=== PATIENT | male | born 1965 ===

== ENCOUNTER 2017-06-13 10:27 | Observation (INO) | payer BC ==
[2017-06-13] MEDS ORDERED: Albuterol-Ipratrop 3 mg / 0.5 (3 ml) UD ONE ×2 (10:52→14:35)
[2017-06-13] MEDS ORDERED: Magnesium Sulfate 2 gm/50 ml 2 GM/50 ML BAG ONE (10:53)
[2017-06-13] MEDS ORDERED: Magnesium Sulfate 2 gm/50 ml 2 GM/50 ML BAG IVPB ONE (10:56)
[2017-06-13] MEDS ORDERED: Albuterol-Ipratrop 3 mg / 0.5 (3 ml) UD INH STA ×3 (10:56→14:38)
--- NOTE | 2017-06-13 11:09 | ED PDOC ---
HPI: SOB/CHF/COPD Time Seen by Provider: 06/13/17 10:41 Chief Complaint (Nursing): Shortness Of Breath Chief Complaint (Provider): Shortness of Breath, Cough History Per: Patient History/Exam Limitations: no limitations Onset/Duration Of Symptoms: Days (2 weeks) Current Symptoms Are (Timing): Still Present Current Respiratory Medications: See Home Med List Associated Symptoms: denies: Sweating, Chest Pain, Bloody Cough, Heart Racing, Leg/Calf Pain, Ankle/Leg Swelling, Dizziness, Anxiety Recently: Seen In ED Additional History Per: Patient Additional Complaint(s): Patient is a 52 year old male, with Past medical history of asthma since 2003, presents to Emergency Department for evaluation of cough, shortness of breath, body aches, and generalized weakness for the past 2 weeks. Patient was seen at [facility] 10 days ago for similar symptoms and was prescribed Prednisone, and Azithromycin which patient completed without improvement of symptoms. Patient denies chest pain, orthopnea, hemoptysis, or fever. Past Medical History Reviewed: Historical Data, Nursing Documentation, Vital Signs Vital Signs: Last Vital Signs Temp 98.1 F 06/14/17 15:46 Pulse 102 H 06/14/17 15:46 Resp 20 06/14/17 15:46 BP 149/84 06/14/17 15:46 Pulse Ox 95 06/14/17 15:46 - Medical History PMH: Asthma, Pneumonia (in 2003) - Surgical History Surgical History: No Surg Hx - Family History Family History: States: Unknown Family Hx - Social History Current smoker - smoking cessation education provided: No - Home Medications Home Medications: Ambulatory Orders Medication Instructions Recorded Ascorbic Acid [Vitamin C 500 mg 1 tab PO DAILY 06/13/17 Tab] Multivitamin [Multi-Vitamin Daily] 1 tab PO DAILY 06/13/17 Albuterol HFA [Ventolin HFA 90 2 puff IH Q4H PRN 30 Days inhaler 06/14/17 mcg/actuation (8 g)] Albuterol/Ipratropium [Duoneb 3 3 ml INH RQID neb 06/14/17 mg/0.5 mg (3 ml) UD] Azithromycin 250 mg PO DAILY 5 Days #6 tablet 06/14/17 Fluticasone/Salmeterol 250/50 1 puff IH Q12 puff 06/14/17 [Advair Diskus 250/50] - Allergies Allergies/Adverse Reactions: Allergies Allergy/AdvReac Type Severity Reaction Status Date / Time No Known Allergies Allergy Verified 06/13/17 10:42 Review of Systems Constitutional: Positive for: Weakness (body aches). Negative for: Fever, Chills Cardiovascular: Negative for: Chest Pain, Palpitations, Orthopnea, Edema, Light Headedness Respiratory: Positive for: Cough, Shortness of Breath, Wheezing. Negative for: Hemoptysis, Sputum Physical Exam - Reviewed Nursing Documentation Reviewed: Yes Vital Signs Reviewed: Yes - Physical Exam Appears: Positive for: Non-toxic, No Acute Distress Head Exam: Positive for: ATRAUMATIC, NORMOCEPHALIC Skin: Positive for: Normal Color, Warm, Dry Eye Exam: Positive for: EOMI, Normal appearance, PERRL Neck: Positive for: Normal, Painless ROM, Supple Cardiovascular/Chest: Positive for: Regular Rate, Rhythm. Negative for: Murmur Respiratory: Positive for: Wheezing (trace wheezing bilaterally). Negative for : Respiratory Distress Gastrointestinal/Abdominal: Positive for: Normal Exam, Soft. Negative for: Tenderness Back: Positive for: Normal Inspection. Negative for: Vertebral Tenderness Extremity: Positive for: Normal ROM. Negative for: Pedal Edema, Deformity Neurologic/Psych: Positive for: Alert, Oriented. Negative for: Motor/Sensory Deficits - Laboratory Results Result Diagrams: 06/14/17 08:10 06/14/17 08:10 - ECG O2 Sat by Pulse Oximetry: 95 (on RA) Pulse Ox Interpretation: Normal Medical Decision Making Medical Decision Making: Plan: EKG, Chest x-ray CMP, CBC, Troponin, B-type Natriuretic Peptide Albuterol treatment Solu-Medrol Magnesium Sulfate Reassess labs clinically unremarkable CXR reviewed no acute infiltrate Clinically appears as +yellow productive sputum, will treat for clinical PNA Time: 1430 --Upon provider reevaluation, patient remains hypoxic with SpO2: 89% at room air. Patient was short of breath while walking to bathroom. Given failure at outpatient facility with oral Prednisone and antibiotics, patient will be placed on tele OBS to Dr. Villagran for stabilization. Levaquin initiated. Admit Obs Dr Villagran weapons electrical engineering officer medicine, PMD in [place]. Disposition - Clinical Impression Clinical Impression: Asthma exacerbation - Patient ED Disposition Is Patient to be Admitted: Yes Counseled Patient/Family Regarding: Studies Performed - Disposition Disposition Time: 14:30 Condition: STABLE - Pt Status Changed To: Hospital Disposition Of: Observation - POA Present On Arrival: None - PA / DENTAL THERAPIST / Resident Statement /DO has reviewed & agrees with the documentation as recorded. (Vernon Nicole All medical record entries made by the Scribe were at my direction and personally dictated by me. I have reviewed the chart and agree that the record accurately reflects my personal performance of the history, physical exam, medical decision making, and the department course for this patient. I have also personally directed, reviewed, and agree with the discharge instructions and disposition.)
[2017-06-13 11:24] LABS: BASO # 0.1 K/uL (0.0-0.2); BASO % 0.9 % (0.0-2.0); EOS # 1.1 K/uL (0.0-0.7); EOS % 11.2 % (0.0-4.0); HEMATOCRIT 45.6 % (35.0-51.0); LYMPH # 3.1 K/uL (1.0-4.3); LYMPH % 31.6 % (20.0-40.0); MEAN CELL VOLUME 88.8 fl (80.0-94.0); MEAN CORPUSCULAR HEMOGLOBIN 29.7 pg (27.0-31.0); MEAN CORPUSCULAR HGB CONC 33.4 g/dL (33.0-37.0); MEAN PLATELET VOLUME 7.5 fl (7.2-11.7); MONO # 0.9 K/uL (0.0-0.8); MONO % 8.9 % (0.0-10.0); NEUT # 4.7 K/uL (1.8-7.0); NEUT % 47.4 % (50.0-75.0); NRBC % 0.1 % (0.0-0.0); RED CELL DISTRIBUTION WIDTH 13.5 % (11.5-14.5); WHITE BLOOD COUNT 9.9 K/uL (4.8-10.8)
[2017-06-13 11:41] LABS: ALB/GLOB RATIO 1.4 (1.0-2.1); ALKALINE PHOSPHATASE 57 U/L (38-126); ALT/SGPT 57 U/L (21-72); AST/SGOT 31 U/L (17-59); BLOOD UREA NITROGEN 22 mg/dl (9-20); CALCIUM 9.2 mg/dL (8.4-10.2); CARBON DIOXIDE 29 mmol/L (22-30); CHLORIDE 105 mmol/L (98-107); GFR AFRICAN-AMERICAN > 60; GLUCOSE,RANDOM 115 mg/dL (75-110); POTASSIUM 3.6 MMOL/L (3.6-5.0); SODIUM 143 mmol/l (132-148); TOTAL PROTEIN 6.8 G/DL (6.3-8.2)
--- NOTE | 2017-06-13 11:52 | RAD ---
HISTORY: COMPARISON: No prior. TECHNIQUE: Chest PA and lateral FINDINGS: LINES AND TUBES: None. LUNG AND PLEURA: The lungs are hyperinflated and there is peribronchial thickening with chronic changes in both lungs. There is no lobar pneumonia. HEART AND MEDIASTINUM: The heart is not enlarged. The hilar and mediastinal contours are within normal limits. SKELETAL STRUCTURES: The bony structures are within normal limits for the patient's age. VISUALIZED UPPER ABDOMEN: Normal. OTHER FINDINGS: None. IMPRESSION: No active pulmonary disease. COPD.
[2017-06-13] MEDS ORDERED: levoFLOXacin 750 mg in D5W 150 ML BAG IVPB STA (14:37)
[2017-06-13] MEDS ORDERED: Albuterol-Ipratrop 3 mg / 0.5 (3 ml) UD INH PRN (16:04)
[2017-06-13] MEDS ORDERED: levoFLOXacin 750 mg in D5W 750 MG/150 ML BAG IVPB ONE (16:10)
--- NOTE | 2017-06-13 16:12 | CP.PCM.HP ---
History of Present Illness - History of Present Illness History of Present Illness: CC: Dyspnea and Cough History of Present Illness: A 52 year old male, with Past medical history of asthma since 2003, presents to Emergency Department for evaluation of cough, shortness of breath, body aches, and generalized weakness for the past 2 weeks. Patient was seen at [facility]] 10 days ago for similar symptoms and was prescribed Prednisone, and Azithromycin which patient completed without improvement of symptoms. Patient denies chest pain, orthopnea, hemoptysis, or fever. He smoked until 1996 from the age of 14, and does not know if he has Asthma vs COPD. Past Patient History - Past Social History Smoking Status: Never Smoked - PULMONARY Hx Asthma: Yes Hx Pneumonia: Yes (in 2003) - PSYCHIATRIC Hx Substance Use: No Meds Allergies/Adverse Reactions: Allergies Allergy/AdvReac Type Severity Reaction Status Date / Time No Known Allergies Allergy Verified 06/13/17 10:42 Results - Vital Signs Recent Vital Signs: Last Vital Signs Temp 97.8 F 06/13/17 15:28 Pulse 94 H 06/13/17 15:28 Resp 16 06/13/17 15:28 BP 136/70 06/13/17 15:28 Pulse Ox 92 L 06/13/17 15:28 - Labs Result Diagrams: 06/13/17 11:15 06/13/17 11:15 Labs: Laboratory Results - last 24 hr 06/13/17 06/13/17 11:15 11:15 WBC 9.9 RBC 5.14 Hgb 15.2 Hct 45.6 MCV 88.8 MCH 29.7 MCHC 33.4 RDW 13.5 Plt Count 203 MPV 7.5 Neut % (Auto) 47.4 L Lymph % (Auto) 31.6 [place] % (Auto) 8.9 Eos % (Auto) 11.2 H Baso % (Auto) 0.9 Neut # 4.7 Lymph # 3.1 [place] # 0.9 H Eos # 1.1 H Baso # 0.1 Sodium 143 Potassium 3.6 Chloride 105 Carbon Dioxide 29 Anion Gap 13 BUN 22 H Creatinine 0.8 Est GFR ( Amer) > 60 Est GFR (Non-Af Amer) > 60 Random Glucose 115 H Calcium 9.2 Total Bilirubin 1.0 AST 31 ALT 57 Alkaline Phosphatase 57 Troponin I < 0.0120 NT-Pro-B Natriuret Pep 58.3 Total Protein 6.8 Albumin 4.0 Globulin 2.8 Albumin/Globulin Ratio 1.4 Assessment & Plan (1) Asthma with COPD with exacerbation Status: Acute
[2017-06-13] MEDS ORDERED: methylPREDNISolone 40 MG in Sodium Chloride 0.9% 50 ML IV SCH (17:00)
[2017-06-13] MEDS: MethylPREDNISolone 40 mg Vial IVP SCH (18:51)
[2017-06-14] MEDS: MethylPREDNISolone 40 mg Vial IVP SCH ×3 (01:13→16:05)
--- NOTE | 2017-06-14 07:48 | CARD ---
APPROVED REPORT EKG Measurement Heart [id number] <Conclusion> Sinus tachycardia with occasional premature Atrial complexes Otherwise normal ECG
[2017-06-14 08:23] LABS: BASO % 0.1 % (0.0-2.0); EOS % 0.1 % (0.0-4.0); LYMPH # 1.1 K/uL (1.0-4.3); LYMPH % 10.6 % (20.0-40.0); MEAN CELL VOLUME 88.1 fl (80.0-94.0); MEAN CORPUSCULAR HEMOGLOBIN 29.2 pg (27.0-31.0); MEAN CORPUSCULAR HGB CONC 33.1 g/dL (33.0-37.0); MEAN PLATELET VOLUME 7.9 fl (7.2-11.7); MONO # 0.2 K/uL (0.0-0.8); MONO % 1.9 % (0.0-10.0); NEUT # 9.2 K/uL (1.8-7.0); NEUT % 87.3 % (50.0-75.0); RED CELL DISTRIBUTION WIDTH 13.2 % (11.5-14.5); WHITE BLOOD COUNT 10.5 K/uL (4.8-10.8)
[2017-06-14 08:30] LABS: BLOOD UREA NITROGEN 20 mg/dl (9-20); CALCIUM 9.2 mg/dL (8.4-10.2); CARBON DIOXIDE 28 mmol/L (22-30); CHLORIDE 102 mmol/L (98-107); GFR AFRICAN-AMERICAN > 60; GLUCOSE,RANDOM 147 mg/dL (75-110); POTASSIUM 4.4 MMOL/L (3.6-5.0); SODIUM 142 mmol/l (132-148)
[2017-06-14] MEDS: levoFLOXacin 500 mg in D5W 500 MG/100 ML BAG IVPB SCH (12:04)
[2017-06-14] MEDS: Pantoprazole 40 mg EC Tab PO SCH (12:07)
[2017-06-14] MEDS: Enoxaparin 40 mg Syringe SC SCH (12:07)
[2017-06-14] MEDS: Fluticasone-Salmeterol 250-50mcg Diskus IH SCH ×2 (12:08→23:13)
[2017-06-14] MEDS: Albuterol-Ipratrop 3 mg / 0.5 (3 ml) UD INH SCH ×4 (12:14→19:28)
[2017-06-14] MEDS ORDERED: Albuterol 0.083% Inhal Sol (2.5 mg/3 mL) UD ONE (16:33)
--- NOTE | 2017-06-14 16:58 | CP.PCM.DIS ---
Provider - Provider Date of Admission: 06/14/17 14:43 Attending physician: Khris Villagran MD Time Spent in preparation of Discharge (in minutes): 35 Diagnosis - Discharge Diagnosis (1) Asthma with COPD with exacerbation Status: Acute Hospital Course - Lab Results Lab Results: Micro Results 06/13/17 15:30 Blood-Venous Blood Culture - Preliminary NO GROWTH AFTER 24 HOURS 06/13/17 15:45 Blood-Venous Blood Culture - Preliminary NO GROWTH AFTER 24 HOURS Most Recent Lab Values WBC 10.5 K/uL (4.8-10.8) 06/14/17 08:10 RBC 5.45 Mil/uL (4.40-5.90) 06/14/17 08:10 Hgb 15.9 g/dL (12.0-18.0) 06/14/17 08:10 Hct 48.0 % (35.0-51.0) 06/14/17 08:10 MCV 88.1 fl (80.0-94.0) 06/14/17 08:10 MCH 29.2 pg (27.0-31.0) 06/14/17 08:10 MCHC 33.1 g/dL (33.0-37.0) 06/14/17 08:10 RDW 13.2 % (11.5-14.5) 06/14/17 08:10 Plt Count 229 K/uL (130-400) 06/14/17 08:10 MPV 7.9 fl (7.2-11.7) 06/14/17 08:10 Neut % (Auto) 87.3 % (50.0-75.0) H 06/14/17 08:10 Lymph % (Auto) 10.6 % (20.0-40.0) L 06/14/17 08:10 [place] % (Auto) 1.9 % (0.0-10.0) 06/14/17 08:10 Eos % (Auto) 0.1 % (0.0-4.0) 06/14/17 08:10 Baso % (Auto) 0.1 % (0.0-2.0) 06/14/17 08:10 Neut # 9.2 K/uL (1.8-7.0) H 06/14/17 08:10 Lymph # 1.1 K/uL (1.0-4.3) 06/14/17 08:10 [place] # 0.2 K/uL (0.0-0.8) 06/14/17 08:10 Eos # 0.0 K/uL (0.0-0.7) 06/14/17 08:10 Baso # 0.0 K/uL (0.0-0.2) 06/14/17 08:10 Sodium 142 mmol/l (132-148) 06/14/17 08:10 Potassium 4.4 MMOL/L (3.6-5.0) 06/14/17 08:10 Chloride 102 mmol/L (98-107) 06/14/17 08:10 Carbon Dioxide 28 mmol/L (22-30) 06/14/17 08:10 Anion Gap 16 (10-20) 06/14/17 08:10 BUN 20 mg/dl (9-20) 06/14/17 08:10 Creatinine 0.7 mg/dL (0.8-1.5) L 06/14/17 08:10 Est GFR ( Amer) > 60 06/14/17 08:10 Est GFR (Non-Af Amer) > 60 06/14/17 08:10 Random Glucose 147 mg/dL (75-110) H 06/14/17 08:10 Calcium 9.2 mg/dL (8.4-10.2) 06/14/17 08:10 Total Bilirubin 1.0 mg/dl (0.2-1.3) 06/13/17 11:15 AST 31 U/L (17-59) 06/13/17 11:15 ALT 57 U/L (21-72) 06/13/17 11:15 Alkaline Phosphatase 57 U/L (38-126) 06/13/17 11:15 Troponin I < 0.0120 ng/mL (0.00-0.120) 06/13/17 11:15 NT-Pro-B Natriuret Pep 58.3 pg/ml (0-900) 06/13/17 11:15 Total Protein 6.8 G/DL (6.3-8.2) 06/13/17 11:15 Albumin 4.0 g/dL (3.5-5.0) 06/13/17 11:15 Globulin 2.8 gm/dL (2.2-3.9) 06/13/17 11:15 Albumin/Globulin Ratio 1.4 (1.0-2.1) 06/13/17 11:15 Discharge Exam - Head Exam Head Exam: ATRAUMATIC, NORMOCEPHALIC Discharge Plan - Discharge Medications Prescriptions: Azithromycin 250 mg PO DAILY 5 Days #6 tablet Methylprednisolone [Medrol Dose Pack (21 tabs)] 4 mg PO DAILY #21 mg Albuterol HFA [Ventolin HFA 90 mcg/actuation (8 g)] 2 puff IH Q4H PRN 30 Days inhaler PRN Reason: Shortness Of Breath - Follow Up Plan Condition: STABLE Disposition: HOME/ ROUTINE
[2017-06-14] MEDS ORDERED: Fluticasone-Salmeterol 250-50mcg Diskus IH SCH (21:00)
[2017-06-15] MEDS: MethylPREDNISolone 40 mg Vial IVP SCH ×3 (00:51→16:54)
[2017-06-15 07:19] LABS: BASO % 0.2 % (0.0-2.0); LYMPH % 8.4 % (20.0-40.0); MEAN CELL VOLUME 88.8 fl (80.0-94.0); MEAN CORPUSCULAR HEMOGLOBIN 28.7 pg (27.0-31.0); MEAN CORPUSCULAR HGB CONC 32.4 g/dL (33.0-37.0); MEAN PLATELET VOLUME 7.8 fl (7.2-11.7); MONO # 0.3 K/uL (0.0-0.8); NEUT # 10.3 K/uL (1.8-7.0); NEUT % 88.4 % (50.0-75.0); PLATELET COUNT 220 K/uL (130-400); RED CELL DISTRIBUTION WIDTH 13.6 % (11.5-14.5); WHITE BLOOD COUNT 11.6 K/uL (4.8-10.8)
[2017-06-15 07:29] LABS: BLOOD UREA NITROGEN 21 mg/dl (9-20); CALCIUM 8.8 mg/dL (8.4-10.2); CARBON DIOXIDE 29 mmol/L (22-30); CHLORIDE 101 mmol/L (98-107); GFR AFRICAN-AMERICAN > 60; GLUCOSE,RANDOM 144 mg/dL (75-110); POTASSIUM 4.6 MMOL/L (3.6-5.0); SODIUM 140 mmol/l (132-148)
[2017-06-15] MEDS: Albuterol-Ipratrop 3 mg / 0.5 (3 ml) UD INH SCH ×3 (07:32→15:52)
--- NOTE | 2017-06-15 08:16 | PQF GENQUE ---
This form is a permanent part of the medical record 06/15/17 Dr. Villagran, 3 clarification questions. 1) Are both the ASTHMA and COPD exacerbated or other explanation ? 2) Please clarify the TYPE of ASTHMA . 3) ER with an additional diagnosis of CLINICAL PNEUMONIA. Please clarify if this is ruled in or ruled out after workup. Admitted with cough, sob, body aches and weakness. Treated as an outpatient without improvement of symptoms. Former smoker. CXR: No active pulmonary disease. COPD. WBC 9.9, afebrile. Treated with nebulizers, Solumedrol, IVAB, Advair Diskus. Clarification of your documentation is requested to better reflect the severity of illness and intensity of treatment of your patient. Indicators present [] Specify: [] [] Specify: [] [] Specify: [] [] Specify: [] Location in the medical record that reflects the above clinical findings: [] Treatment Provided: [] PHYSICIAN'S RESPONSE 1) [] Asthma exacerbation only [] COPD exacerbation only [] Both Asthma and COPD exacerbation 2) TYPE of ASTHMA [] Childhood [] Cough variant [] Exercise induced [] Late onset [] Mild intermittent [] Mild persistent [] Moderate persistent [] Severe persistent [] With bronchitis(please clarify acuity of bronchitis) [] With chronic lung disease (please document specific chronic lung disease) [] Other (please specify) [] Clinically unable to determine [] Unknown 3) [] Clinical Pneumonia ruled in [] Clinical Pneumonia ruled out Based on your medical judgment of the clinical indicators outlined above please clarify the following: [] Practitioner response [] If unable to determine, please check the box, sign and date. Present On Admission (POA) Indicator: [] Present at the time of admission [] Not present at the time of admission [] Clinically Undetermined In responding to this query, please exercise your independent professional judgment. The fact that a question is asked does not imply that any particular answer is desired or expected. Thank you for your clarification on this documentation. If you have any questions please call:ext [phone] * Thank you, Patrizia Sheets RN, CDMP [facility]
[2017-06-15] MEDS: Fluticasone-Salmeterol 250-50mcg Diskus IH SCH (08:28)
[2017-06-15] MEDS: Pantoprazole 40 mg EC Tab PO SCH (08:29)
[2017-06-15] MEDS: Enoxaparin 40 mg Syringe SC SCH (08:30)
[2017-06-15] MEDS: levoFLOXacin 500 mg in D5W 500 MG/100 ML BAG IVPB SCH (08:31)
[2017-06-15 09:39] LABS: NEUTROPHIL 87 % (42-75); TOTAL CELLS COUNTED 100
--- NOTE | 2017-06-15 10:34 | CARD ---
APPROVED REPORT EXAM: Two-dimensional and M-mode echocardiogram with Doppler and color Doppler. Other Information Quality : FairRhythm : Tachycardia Technically limited study due to Very limited to study,only sub xphoid window available. INDICATION Dyspnea Mitral Valve E/A ratio0.0 TDI E/Lateral E'0.0E/Medial E'0.0 LEFT VENTRICLE See conclusion see conclusion see conclusion see conclusion see conclusion RIGHT VENTRICLE see conclusion see conclusion ATRIA see conclusion see conclusion AORTIC VALVE see conclusion see conclusion see conclusion MITRAL VALVE see conclusion see conclusion see conclusion see conclusion TRICUSPID VALVE see conclusion see conclusion PULMONIC VALVE see conclusion see conclusion GREAT VESSELS see conclusion see conclusion PERICARDIAL EFFUSION see conclusion <Conclusion> Extremely poor echo window. Only subxyphoid imaging possible. Chamber sizes appeared normal. Individual LV segments could not be visualised. LV function can not be assesed.
[2017-06-15] MEDS ORDERED: Iohexol 300 100 ML IJ ONE (12:20)
[2017-06-15] MEDS ORDERED: Sodium Chloride 0.9% 50 ML IV ONE (12:21)
[2017-06-15 12:27] VITALS: TEMP 98.3
--- NOTE | 2017-06-15 14:32 | CT ---
PROCEDURE: CT Chest with contrast HISTORY: Asthma exacerbation presenting with tachycardia and shortness of breath. COMPARISON: 06/13/2017. Two-view chest TECHNIQUE: Contiguous axial images were obtained through the chest with intravenous contrast enhancement. Sagittal and coronal reconstructions were performed. IV contrast: 95 cc Omnipaque 300 Radiation dose (DLP): 656.44 mGy-cm. This CT exam was performed using one or more of the following dose reduction techniques: Automated exposure control, adjustment of the mA and/or kV according to patient size, and/or use of iterative reconstruction technique. FINDINGS: LUNGS: Hyperinflation, manifestations of COPD. No active pulmonary disease. Centrilobular emphysematous change noted. MEDIASTINUM: Unremarkable thoracic aorta. No aneurysm or dissection. Normal sized heart. Main pulmonary artery unremarkable. No vascular congestion. No lymphadenopathy. PLEURA: No pleural fluid. No pneumothorax. BONES: No fracture. No destructive lesion. UPPER ABDOMEN: Hepatic steatosis. Sub cm cyst right hepatic lobe. OTHER FINDINGS: None. IMPRESSION: No acute findings related to/accounting for the clinical presentation. Additional benign and/or incidental findings described above.
--- NOTE | 2017-06-15 15:00 | CP.PCM.CON ---
History of Present Illness - History of Present Illness History of Present Illness: PT ADMITTED FOR COPD EXAC. FEELS BETTER ON ABX. HAS HAD RECURRENT EXAC OF ASTHMA SINCE 2002 WHEN HE HAD PNA. NO HX OF CAD, GA, CHF. PT DENIES CP, PALP, EARLY, ORTHOPNEA, PND, CHASIDY. ECHO IS LIMITED BUT EF APPEARS GROSSLY NORMAL. NO MURMURS ON EXAM Past Patient History - Past Medical History & Family History Past Medical History?: Yes - Past Social History Smoking Status: Former Smoker - PULMONARY Hx Asthma: Yes Hx Pneumonia: Yes (in 2003) - MUSCULOSKELETAL/RHEUMATOLOGICAL Hx Falls: No - PSYCHIATRIC Hx Substance Use: No - ANESTHESIA Hx Anesthesia Reactions: No Hx Malignant Hyperthermia: No Has any member of the family had a problem w/ anesthesia?: No Meds Home Medications: Home Medication List Medication Instructions Recorded Confirmed Type Albuterol HFA [Ventolin HFA 90 2 puff IH Q4H PRN 30 Days inhaler 06/14/17 Rx mcg/actuation (8 g)] Albuterol/Ipratropium [Duoneb 3 3 ml INH RQID neb 06/14/17 Rx mg/0.5 mg (3 ml) UD] Azithromycin 250 mg PO DAILY 5 Days #6 tablet 06/14/17 Rx Fluticasone/Salmeterol 250/50 1 puff IH Q12 puff 06/14/17 Rx [Advair Diskus 250/50] Methylprednisolone [Medrol Dose 4 mg PO DAILY #21 mg 06/15/17 Rx Pack (21 tabs)] Allergies/Adverse Reactions: Allergies Allergy/AdvReac Type Severity Reaction Status Date / Time No Known Allergies Allergy Verified 06/13/17 10:42 - Medications Medications: Current Medications Albuterol/Ipratropium (Duoneb 3 Mg/0.5 Mg (3 Ml) Ud) 3 ml INH RQ6 PRN PRN Reason: Shortness of Breath Albuterol/Ipratropium (Duoneb 3 Mg/0.5 Mg (3 Ml) Ud) 3 ml INH RQID [facility] Last Admin: 06/15/17 11:08 Dose: 3 ml Enoxaparin Sodium (Lovenox) 40 mg SC DAILY [facility] PRN Reason: Protocol Last Admin: 06/15/17 08:30 Dose: 40 mg Levofloxacin/Dextrose (Levaquin 500mg) 500 mg in 100 mls @ 100 mls/hr IVPB DAILY [facility] Last Admin: 06/15/17 08:31 Dose: 100 mls/hr Methylprednisolone (Solu-Medrol) 40 mg IVP Q8 [facility] Last Admin: 06/15/17 08:29 Dose: 40 mg Pantoprazole Sodium (Protonix Ec Tab) 40 mg PO DAILY [facility] Last Admin: 06/15/17 08:29 Dose: 40 mg Fluticasone/Salmeterol (Advair Diskus 250/50) 1 puff IH Q12 [facility] Last Admin: 06/15/17 08:28 Dose: 1 puff Results - Vital Signs Recent Vital Signs: Last Vital Signs Temp 98.3 F 06/15/17 12:00 Pulse 114 H 06/15/17 12:00 Resp 18 06/15/17 12:00 BP 141/71 06/15/17 12:00 Pulse Ox 96 06/15/17 12:00 - Labs Result Diagrams: 06/15/17 06:45 06/15/17 06:45 Labs: Laboratory Results - last 24 hr 06/15/17 06/15/17 06/15/17 06:45 06:45 10:10 WBC 11.6 H RBC 5.40 Hgb 15.5 Hct 48.0 MCV 88.8 MCH 28.7 MCHC 32.4 L RDW 13.6 Plt Count 220 MPV 7.8 Neut % (Auto) 88.4 H Lymph % (Auto) 8.4 L [place] % (Auto) 3.0 Eos % (Auto) 0.0 Baso % (Auto) 0.2 Neut # 10.3 H Lymph # 1.0 [place] # 0.3 Eos # 0.0 Baso # 0.0 Neutrophils % (Manual) 87 H Lymphocytes % (Manual) 10 L Monocytes % (Manual) 3 Platelet Estimate Normal RBC Morphology Normal D-Dimer, Quantitative 293 H Sodium 140 Potassium 4.6 Chloride 101 Carbon Dioxide 29 Anion Gap 16 BUN 21 H Creatinine 0.7 L Est GFR ( Amer) > 60 Est GFR (Non-Af Amer) > 60 Random Glucose 144 H Calcium 8.8 Assessment & Plan (1) SOB (shortness of breath) Status: Acute (2) Asthma exacerbation Status: Acute - Assessment and Plan (Free Text) Plan: PT MAY BE D/C TO HOME HIS SOB IS DUE TO ASTHMA. HE CAN PURSUE CV EVAL AT HIS [facility] OUTPT.
--- NOTE | 2017-06-15 16:17 | CP.PCM.PN ---
Subjective - Date & Time of Evaluation Date of Evaluation: 06/14/17 Time of Evaluation: 17:00 Objective - Vital Signs/Intake and Output Vital Signs (last 24 hours): Temp Pulse Resp BP Pulse Ox 98.3 F 114 H 18 141/71 96 06/15/17 12:00 06/15/17 12:00 06/15/17 12:00 06/15/17 12:00 06/15/17 12:00 - Medications Medications: Current Medications Albuterol/Ipratropium (Duoneb 3 Mg/0.5 Mg (3 Ml) Ud) 3 ml INH RQ6 PRN PRN Reason: Shortness of Breath Albuterol/Ipratropium (Duoneb 3 Mg/0.5 Mg (3 Ml) Ud) 3 ml INH RQID [facility] Last Admin: 06/15/17 15:52 Dose: 3 ml Enoxaparin Sodium (Lovenox) 40 mg SC DAILY [facility] PRN Reason: Protocol Last Admin: 06/15/17 08:30 Dose: 40 mg Levofloxacin/Dextrose (Levaquin 500mg) 500 mg in 100 mls @ 100 mls/hr IVPB DAILY [facility] Last Admin: 06/15/17 08:31 Dose: 100 mls/hr Methylprednisolone (Solu-Medrol) 40 mg IVP Q8 [facility] Last Admin: 06/15/17 08:29 Dose: 40 mg Pantoprazole Sodium (Protonix Ec Tab) 40 mg PO DAILY [facility] Last Admin: 06/15/17 08:29 Dose: 40 mg Fluticasone/Salmeterol (Advair Diskus 250/50) 1 puff IH Q12 [facility] Last Admin: 06/15/17 08:28 Dose: 1 puff - Labs Labs: 06/15/17 06:45 06/15/17 06:45 Assessment and Plan (1) Asthma with COPD with exacerbation Status: Acute
--- NOTE | 2017-06-15 16:35 | CP.PCM.DIS ---
Provider - Provider Date of Admission: 06/14/17 14:43 Attending physician: Khris Villagran MD Diagnosis - Discharge Diagnosis (1) Asthma with COPD with exacerbation Status: Acute Hospital Course - Lab Results Lab Results: Micro Results 06/13/17 15:30 Blood-Venous Blood Culture - Preliminary NO GROWTH AFTER 48 HOURS 06/13/17 15:45 Blood-Venous Blood Culture - Preliminary NO GROWTH AFTER 48 HOURS Most Recent Lab Values WBC 11.6 K/uL (4.8-10.8) H 06/15/17 06:45 RBC 5.40 Mil/uL (4.40-5.90) 06/15/17 06:45 Hgb 15.5 g/dL (12.0-18.0) 06/15/17 06:45 Hct 48.0 % (35.0-51.0) 06/15/17 06:45 MCV 88.8 fl (80.0-94.0) 06/15/17 06:45 MCH 28.7 pg (27.0-31.0) 06/15/17 06:45 MCHC 32.4 g/dL (33.0-37.0) L 06/15/17 06:45 RDW 13.6 % (11.5-14.5) 06/15/17 06:45 Plt Count 220 K/uL (130-400) 06/15/17 06:45 MPV 7.8 fl (7.2-11.7) 06/15/17 06:45 Neut % (Auto) 88.4 % (50.0-75.0) H 06/15/17 06:45 Lymph % (Auto) 8.4 % (20.0-40.0) L 06/15/17 06:45 [place] % (Auto) 3.0 % (0.0-10.0) 06/15/17 06:45 Eos % (Auto) 0.0 % (0.0-4.0) 06/15/17 06:45 Baso % (Auto) 0.2 % (0.0-2.0) 06/15/17 06:45 Neut # 10.3 K/uL (1.8-7.0) H 06/15/17 06:45 Lymph # 1.0 K/uL (1.0-4.3) 06/15/17 06:45 [place] # 0.3 K/uL (0.0-0.8) 06/15/17 06:45 Eos # 0.0 K/uL (0.0-0.7) 06/15/17 06:45 Baso # 0.0 K/uL (0.0-0.2) 06/15/17 06:45 Neutrophils % (Manual) 87 % (42-75) H 06/15/17 06:45 Lymphocytes % (Manual) 10 % (20-50) L 06/15/17 06:45 Monocytes % (Manual) 3 % (0-10) 06/15/17 06:45 Platelet Estimate Normal (NORMAL) 06/15/17 06:45 RBC Morphology Normal (NORMAL) 06/15/17 06:45 D-Dimer, Quantitative 293 ng/mlDDU (0-230) H 06/15/17 10:10 Sodium 140 mmol/l (132-148) 06/15/17 06:45 Potassium 4.6 MMOL/L (3.6-5.0) 06/15/17 06:45 Chloride 101 mmol/L (98-107) 06/15/17 06:45 Carbon Dioxide 29 mmol/L (22-30) 06/15/17 06:45 Anion Gap 16 (10-20) 06/15/17 06:45 BUN 21 mg/dl (9-20) H 06/15/17 06:45 Creatinine 0.7 mg/dL (0.8-1.5) L 06/15/17 06:45 Est GFR ( Amer) > 60 06/15/17 06:45 Est GFR (Non-Af Amer) > 60 06/15/17 06:45 Random Glucose 144 mg/dL (75-110) H 06/15/17 06:45 Calcium 8.8 mg/dL (8.4-10.2) 06/15/17 06:45 Total Bilirubin 1.0 mg/dl (0.2-1.3) 06/13/17 11:15 AST 31 U/L (17-59) 06/13/17 11:15 ALT 57 U/L (21-72) 06/13/17 11:15 Alkaline Phosphatase 57 U/L (38-126) 06/13/17 11:15 Troponin I < 0.0120 ng/mL (0.00-0.120) 06/13/17 11:15 NT-Pro-B Natriuret Pep 58.3 pg/ml (0-900) 06/13/17 11:15 Total Protein 6.8 G/DL (6.3-8.2) 06/13/17 11:15 Albumin 4.0 g/dL (3.5-5.0) 06/13/17 11:15 Globulin 2.8 gm/dL (2.2-3.9) 06/13/17 11:15 Albumin/Globulin Ratio 1.4 (1.0-2.1) 06/13/17 11:15 Discharge Exam - Head Exam Head Exam: ATRAUMATIC, NORMOCEPHALIC Discharge Plan - Discharge Medications Prescriptions: Azithromycin 250 mg PO DAILY 5 Days #6 tablet Methylprednisolone [Medrol Dose Pack (21 tabs)] 4 mg PO DAILY #21 mg Albuterol HFA [Ventolin HFA 90 mcg/actuation (8 g)] 2 puff IH Q4H PRN 30 Days inhaler PRN Reason: Shortness Of Breath - Follow Up Plan Condition: STABLE Disposition: HOME/ ROUTINE
[2017-06-15 16:40] VITALS: BP 154/82; PULSE 95; RESP 14; O2SAT 95
[2017-06-16] MEDS ORDERED: Patient's Own Med (Multivitamin [Multi-Vitamin Daily] 1 TAB) PO SCH (09:00)
== END 2017-06-15 17:30 | disposition home or self-care (01) ==
LOC: H.ER 10:27 → H.ERHOLD 14:39 → H.TEL 16:37 → INTOOBSV 06-14 14:43 → OBSVTOIN 06-14 14:43 → H.TEL 06-15 15:55
PROVIDERS: ADMIT Internal Medicine; ATTEND Internal Medicine
DX: J45.901 Unspecified asthma with (acute) exacerbation (principal); J44.1 Chronic obstructive pulmonary disease with (acute) exacerbation; Z87.891 Personal history of nicotine dependence; R09.02 Hypoxemia
CPT/HCPCS: 36415; 71020; 71260; 80048; 80053; 83880; 84443; 84484; 85025; 85378; 87040; 93005; 93306; 94060; 94150; 94640; 96365; 96367; 96375; 99285; G0378; J1650; J2920; J2930; Q9967